=== PATIENT | female | born 1960 | race Asian ===

== ENCOUNTER 2020-03-08 19:40 | Inpatient (IN) | payer OTHER ==
[2020-03-08 19:57] VITALS: BMI 31.7
[2020-03-08] MEDS ORDERED: VALSARTAN 80 MG TABLET (UD) PO ONE (20:40)
[2020-03-08] MEDS ORDERED: VALSARTAN 80 MG TABLET (UD) ONE (20:50)
--- NOTE | 2020-03-08 21:08 | PDOC ---
History of Present Illness - General Chief Complaint: Chest Pain Stated Complaint: CHEST PAIN Time Seen by Provider: 03/08/20 20:16 - History of Present Illness Initial Comments: 03/08/20 21:05 59F PMH TIA, HTN, HLD, pre-diabetes, OA, sciatica, hysterectomy presents with one hour of chest pain. Came on while at rest, left sided, burning/throbbing, not radiating, no associated n/v or SOB. Was noted to be cold and clammy by smith walls. No DVT/PE risk factors. No GERD symptoms. ROS otherwise negative. PMH/PSH: as above Meds: aspirin, statin, ARB Allergies: none FH: Dad of [place] in his 30s PCP: Grover UGALDE GENERAL/CONSTITUTIONAL: No fever or chills. No weakness. HEAD, EYES, EARS, NOSE AND THROAT: No change in vision. No ear pain or discharge. No sore throat. CARDIOVASCULAR: chest pain. no shortness of breath RESPIRATORY: No cough, wheezing, or hemoptysis. GASTROINTESTINAL: No nausea, vomiting, diarrhea or constipation. GENITOURINARY: No dysuria, frequency, or change in urination. MUSCULOSKELETAL: No joint or muscle swelling or pain. No neck or back pain. SKIN: No rash NEUROLOGIC: No headache, vertigo, loss of consciousness, or change in strength/sensation. ENDOCRINE: No increased thirst. No abnormal weight change HEMATOLOGIC/LYMPHATIC: No anemia, easy bleeding, or history of blood clots. ALLERGIC/IMMUNOLOGIC: No hives or skin allergy. PE GENERAL: Awake, alert, and fully oriented, in no acute distress HEAD: No signs of trauma, normocephalic, atraumatic EYES: PERRLA, EOMI, sclera anicteric, conjunctiva clear ENT: Auricles normal inspection, hearing grossly normal, nares patent, oropharynx clear without exudates. Moist mucosa NECK: Normal ROM, supple, no lymphadenopathy, JVD, or masses LUNGS: No distress, speaks full sentences, clear to auscultation bilaterally HEART: Regular rate and rhythm, normal S1 and S2, no murmurs, rubs or gallops, peripheral pulses normal and equal bilaterally. ABDOMEN: Soft, nontender, normoactive bowel sounds. No guarding, no rebound. No masses EXTREMITIES : Normal inspection, Normal range of motion, no edema. No clubbing or cyanosis. NEUROLOGICAL: Cranial nerves II through XII grossly intact. Normal speech, normal gait, no focal sensorimotor deficits SKIN: Warm, Dry, normal turgor, no rashes or lesions noted Vital Signs Temp Pulse Resp BP Pulse Ox 98.9 F 77 18 145/84 100 03/08/20 19:54 03/08/20 20:54 03/08/20 20:54 03/08/20 20:54 03/08/20 20:54 MDM: 59yo female with cardiac risk factors presenting with atypical chest pain. Vitals and exam benign. Cannot PERC out because of age, but Wells-PE is zero. DDx includes ACS, msk pain, GERD. -EKG -CXR -CBC, CMP, trops, coags, BNP 03/09/20 04:50 EKG: sinus tachycardia, rate 102, normal axis, QTc 469, ST depression V6, TW flattening V2-V4 CXR: no focal consolidation (my read) Labs: grossly normal. trops neg x1 HEART Score 4 (age, EKG, risk factors). Admit to tele-obs. Signed out to admitting team. Past History - Medical History Allergies/Adverse Reactions: Allergies Allergy/AdvReac Type Severity Reaction Status Date / Time No Known Allergies Allergy Verified 03/08/20 19:57 COPD: No HTN: Yes Hypercholesterolemia: Yes - Psycho-Social/Smoking History Smoking History: Never smoked - Substance Abuse Hx (Audit-C & DAST Scrn) How often the patient has a drink containing alcohol: Never Score: In Men: 4 or > Positive; In Women: 3 or > Positive: 0 Screen Result (Pos requires Nsg. Audit-10AR): Negative *Physical Exam - Vital Signs Last Vital Signs Temp Pulse Resp BP Pulse Ox 98.9 F 77 18 145/84 100 03/08/20 19:54 03/08/20 20:54 03/08/20 20:54 03/08/20 20:54 03/08/20 20:54 Heart Score/ECG Review - History History: Slightly suspicious - Electrocardiogram EKG: Non specific repolarization disturbance - Age Age: 45-65 - Risk Factors Risk Factors Heart Score: Yes Hx Hypertension, Yes Positive family hx of cardiac disease, Yes Hx Obesity Based on the list above the patient has:: >/=3 risk factors or Hx atherosclerotic disease - Troponin Troponin: </= normal limit - Score Heart Score - Total: 4 ED Treatment Course - LABORATORY CBC & Chemistry Diagram: 03/08/20 21:00 03/08/20 21:00 - Medications Given in the ED: ED Medications Discontinued Medications Generic Name Dose Route Start Last Admin Trade Name Freq PRN Reason Stop Dose Admin Valsartan 80 mg 03/08/20 20:40 03/08/20 20:55 Diovan - PO 03/08/20 20:41 Not Given ONCE ONE Discharge - Discharge Information Problems reviewed: Yes Clinical Impression/Diagnosis: Chest pain Qualifiers: Chest pain type: unspecified Qualified Code(s): R07.9 - Chest pain, unspecified Condition: Guarded - Admission Yes - Follow up/Referral - Patient Discharge Instructions - Post Discharge Activity
[2020-03-08 21:12] LABS: BASO % 0.4 % (0-2.0); EOS % 3.5 % (0-4.5); HEMOGLOBIN 12.6 GM/dL (10.7-15.3); LYMPH % 42.3 % (8-40); MCH 29.9 pg (25.7-33.7); MCHC 34.2 g/dl (32.0-36.0); MEAN CELL VOLUME 87.4 fl (80-96); MEAN PLT VOLUME 8.6 fl (7.5-11.1); MONO % 12.1 % (3.8-10.2); NEUT % 41.7 % (42.8-82.8); PLATELET COUNT 222 K/MM3 (134-434); RBC 4.23 M/mm3 (3.60-5.2); RDW 13.4 % (11.6-15.6); WHITE BLOOD COUNT 6.8 K/mm3 (4.0-10.0)
[2020-03-08 21:18] LABS: INR 0.95 (0.83-1.09); PROTHROMBIN TIME (PATIENT) 11.2 SEC (9.7-13.0)
[2020-03-08] MEDS ORDERED: morphine CARPU-JECT 2 MG/1 ML DISP.SYRIN IVPUSH ONE (21:36)
[2020-03-08] MEDS ORDERED: MORPHINE SULFATE 2 MG/ML VIAL ONE (21:50)
[2020-03-08 21:55] LABS: ALBUMIN 3.9 g/dl (3.4-5.0); ALK PHOS 108 U/L (45-117); ANION GAP 7 MMOL/L (8-16); BILIRUBIN,TOTAL 0.4 mg/dL (0.2-1); BLOOD UREA NITROGEN 15.3 mg/dL (7-18); CALCIUM 8.9 mg/dL (8.5-10.1); CHLORIDE 107 mmol/L (98-107); CO2 25 mmol/L (21-32); CREATININE 0.6 mg/dL (0.55-1.3); GLUCOSE,RANDOM 114 mg/dL (74-106); N-TERMINAL BNP 90.9 pg/ml (5-125); POTASSIUM 3.9 mmol/L (3.5-5.1); SGOT/AST 19 U/L (15-37); SGPT/ALT 31 U/L (13-61); SODIUM 139 mmol/L (136-145); TOT PROT 7.3 g/dl (6.4-8.2)
[2020-03-08] MEDS ORDERED: METOPROLOL TARTRATE 50 MG TABLET (FP) PO ONE (22:22)
[2020-03-08] MEDS ORDERED: METOPROLOL TARTRATE 25 MG TABLET (FP) ONE (22:34)
--- NOTE | 2020-03-09 01:31 | PDOC ---
Documentation entered by Torres Silva SCRIBE, acting as scribe for Meli San MD. Meli San MD: This documentation has been prepared by the Ricardo hodges Angel, SCRIBE, under my direction and personally reviewed by me in its entirety. I confirm that the documentation accurately reflects all work, treatment, procedures, and medical decision making performed by me. Attending Attestation - Resident Resident Name: Toni Pappas - ED Attending Attestation I have performed the following: I have examined & evaluated the patient, The case was reviewed & discussed with the resident, I agree w/resident's findings & plan - HPI HPI: 03/08/20 21:47 The patient is a 59 year old female with a significant past medical history of CVA, HTN, diabetes and high cholesterol who presents to the ED with left sided chest pain since 7pm today. The patient describes the left sided chest pain as non radiating, rating it a 6/10 on arrival. The patient normally takes an aspirin everyday, today she took 3 extra tablets of baby aspirin. On arrival the patient had an elevated blood pressure as well. The patient denies fever/chills, nausea, vomiting, diarrhea, or SOB. Compliant with all medications. Family history: Mother at 39 years old of kidney failure. Father at 39 years old of a heart attack. Grandmother noted to have a history of thrombosis - Physicial Exam PE: 03/08/20 21:47 GENERAL: Awake, alert, and fully oriented, in no acute distress HEAD: No signs of trauma EYES: PERRLA, EOMI, sclera anicteric, conjunctiva clear ENT: Auricles normal inspection, hearing grossly normal, nares patent, oropharynx clear without exudates. Moist mucosa NECK: Normal ROM, supple, no lymphadenopathy, JVD, or masses LUNGS: Breath sounds equal, clear to auscultation bilaterally. No wheezes, and no crackles HEART: Regular rate and rhythm, normal S1 and S2, no murmurs, rubs or gallops ABDOMEN: Soft, nontender, normoactive bowel sounds. No guarding, no rebound. No masses EXTREMITIES: Normal range of motion, no edema. No clubbing or cyanosis. No cords, erythema, or tenderness NEUROLOGICAL: Cranial nerves II through XII grossly intact. Normal speech, normal gait SKIN: Warm, Dry, normal turgor, no rashes or lesions noted. - Medical Decision Making 03/08/20 22:17 first set of labs normal CXR also normal EKG NSR Pt will be admitted for ACS Discharge - Discharge Information Problems reviewed: Yes Clinical Impression/Diagnosis: ACS (acute coronary syndrome) Condition: Guarded - Follow up/Referral - Patient Discharge Instructions - Post Discharge Activity
--- NOTE | 2020-03-09 02:44 | PN ---
Teaching Attending Note Name of Resident: Erich Strickland ATTENDING PHYSICIAN STATEMENT I saw and evaluated the patient. I reviewed the resident's note and discussed the case with the resident. I agree with the resident's findings and plan as documented. SUBJECTIVE: 59yoF with history of TIA, HTN, HLD, pre-diabetes, and sciatica who presents wit h 1 hour of burning left sided chest pain. Patient denies prior history of chest pain, no associated shortness of breath, radiation, or diaphoresis. Pain was located over the medial left breast. She took 3 baby aspirin prior to arriving in the ED. Notes she had a stress test in [facility] several years ago which she believes was normal. The pain was around 7/10 at its worst, improved s/p morphine in the ED. Also reports her father from [place] at age 39. Patient was hypertensive in the ED. Labs were unremarkable including negative troponin. EKG showed flattened T waves in leads V2-V4, no prior to compare. Patient received valsartan with improvement in BP and morphine with improvement in chest pain and is admitted for further work up. OBJECTIVE: Vital Signs - 24 hr 03/08/20 03/08/20 03/08/20 19:54 20:54 22:42 Temperature 98.9 F Pulse Rate 81 Pulse Rate [ 77 Radial] Respiratory 20 18 Rate Blood Pressure 178/93 H Blood Pressure 145/84 141/77 [Left Arm] O2 Sat by Pulse 97 100 Oximetry (%) 03/08/20 03/09/20 23:27 03:00 Temperature Pulse Rate Pulse Rate [ 64 Radial] Respiratory 16 Rate Blood Pressure Blood Pressure 138/81 [Left Arm] O2 Sat by Pulse 98 99 Oximetry (%) EXAM Gen: awake, alert, comfortable appearing CV: RRR, no MRG. No chest pain at time of evaluation, nonreproducible on exam Resp: CTAB, unlabored Abd: Soft, NT, ND Ext: No peripheral edema Neuro: CN II-XII grossly intact, moving all extremities Psych: AOx3, appropriate mood/affect Laboratory Results - last 24 hr 03/08/20 03/08/20 03/08/20 21:00 21:00 21:00 WBC 6.8 RBC 4.23 Hgb 12.6 Hct 37.0 MCV 87.4 MCH 29.9 MCHC 34.2 RDW 13.4 Plt Count 222 MPV 8.6 Absolute Neuts (auto) 2.8 Neutrophils % 41.7 L Lymphocytes % 42.3 H Monocytes % 12.1 H Eosinophils % 3.5 Basophils % 0.4 Nucleated RBC % 0 PT with INR 11.20 INR 0.95 PTT (Actin FS) 33.0 Sodium 139 Potassium 3.9 Chloride 107 Carbon Dioxide 25 Anion Gap 7 L BUN 15.3 Creatinine 0.6 Est GFR (CKD-EPI)AfAm 115.63 Est GFR (CKD-EPI)NonAf 99.77 POC Glucometer Random Glucose 114 H Calcium 8.9 Total Bilirubin 0.4 AST 19 ALT 31 Alkaline Phosphatase 108 Creatine Kinase 124 Troponin I < 0.02 B-Natriuretic Peptide 90.9 Total Protein 7.3 Albumin 3.9 03/09/20 03/09/20 04:15 04:18 WBC RBC Hgb Hct MCV MCH MCHC RDW Plt Count MPV Absolute Neuts (auto) Neutrophils % Lymphocytes % Monocytes % Eosinophils % Basophils % Nucleated RBC % PT with INR INR PTT (Actin FS) Sodium Potassium Chloride Carbon Dioxide Anion Gap BUN Creatinine Est GFR (CKD-EPI)AfAm Est GFR (CKD-EPI)NonAf POC Glucometer 51 Random Glucose Calcium Total Bilirubin AST ALT Alkaline Phosphatase Creatine Kinase Troponin I < 0.02 B-Natriuretic Peptide Total Protein Albumin CXR and EKG reviewed in chart ASSESSMENT AND PLAN: 59yoF with history of TIA, HTN, HLD, pre-diabetes, and sciatica who presents with atypical chest pain. Atypical chest pain Does have numerous risk factors for CAD including HTN, HLD, family history of premature cardiac disease Currently asymptomatic EKG with flattened T waves in anteroseptal leads, nonspecific Initial troponin negative - cycle troponin - risk stratification with A1c, lipids - Repeat EKG in AM - Outpatient f/u for stress test HTN, HLD: continue home meds DVT ppx: Lovenox subq
--- NOTE | 2020-03-09 04:31 | HP ---
CHIEF COMPLAINT: Chest pain PCP: Dr. Grover Agustin HISTORY OF PRESENT ILLNESS: 59 year old female patient with past medical history that includes TIA, HTN, HLD, Carpal Tunnel Syndrome, pre-DM, OA, Sciatica, and Hysterectomy, who presented to the emergency room with 1 hour of left sided burning chest pain michelle t was initially a 7/10, non-radiating, and which came on at rest while she was talking to her daughter. The patient took 3 baby aspirin after the pain started. She has never had this kind of pain in the past. 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 On physical exam, palpation of the patient's chest in the region she reports pain causes reproduction of the pain, with the patient jumping up when the area is palpated. The patient had received Morphine which reduced the pain level from a 7/10 down to a 2/10. ER course was notable for: (1) ECG (NSR, 102bpm, MO 164ms, [id number], nonspecific st and t wave abnormality) (2) Troponin negative (3) Recent Travel: PAST MEDICAL HISTORY: TIA, HTN, HLD, Carpal Tunnel Syndrome, pre-DM, OA, Sciatica PAST SURGICAL HISTORY: Hysterectomy Social History: Smoking: Denies Alcohol: Denies Drugs: Denies Allergies No Known Allergies Allergy (Verified 03/08/20 19:57) HOME MEDICATIONS: REVIEW OF SYSTEMS HEENT: Absent: no acid taste in mouth, no headache RESPIRATORY: Absent: no shortness of breath GASTROINTESTINAL: Absent: no nausea, no vomiting, no heartburn, no diarrhea, no constipation MUSCULOSKELETAL: bilateral ankle swelling Absent: PHYSICAL EXAMINATION Vital Signs - 24 hr 03/08/20 03/08/20 03/08/20 19:54 20:54 22:42 Temperature 98.9 F Pulse Rate 81 Pulse Rate [ 77 Radial] Respiratory 20 18 Rate Blood Pressure 178/93 H Blood Pressure 145/84 141/77 [Left Arm] O2 Sat by Pulse 97 100 Oximetry (%) 03/08/20 03/09/20 23:27 03:00 Temperature Pulse Rate Pulse Rate [ 64 Radial] Respiratory 16 Rate Blood Pressure Blood Pressure 138/81 [Left Arm] O2 Sat by Pulse 98 99 Oximetry (%) GENERAL: Awake, alert, and fully oriented, in no acute distress. HEAD: Normal with no signs of trauma. EYES: Pupils equal, round and reactive to light, extraocular movements intact. No lid lag. EARS, NOSE, THROAT: Ears normal, nares patent, oropharynx clear without exudates. Moist mucous membranes. NECK: Normal range of motion, supple without lymphadenopathy, JVD, or masses. LUNGS: Breath sounds equal, clear to auscultation bilaterally. No wheezes, and no crackles. No accessory muscle use. HEART: Regular rate and rhythm, normal S1 and S2 without murmur, rub or gallop. ABDOMEN: Soft, nontender, not distended, normoactive bowel sounds, no guarding, no rebound, no masses. MUSCULOSKELETAL: Normal range of motion at all joints. No bony deformities or tenderness. Reproduction of pain with patient flinching when area of pain in chest is palpated. UPPER EXTREMITIES: 2+ pulses, warm, well-perfused. No cyanosis. No clubbing. No peripheral edema. LOWER EXTREMITIES: 2+ pulses, warm, well-perfused. No calf tenderness. No peripheral edema. NEUROLOGICAL: Normal speech. PSYCHIATRIC: Cooperative. Good eye contact. Appropriate mood and affect. SKIN: Warm, dry, normal turgor, no rashes or lesions noted, normal capillary refill. Laboratory Results - last 24 hr 03/08/20 03/08/20 03/08/20 21:00 21:00 21:00 WBC 6.8 RBC 4.23 Hgb 12.6 Hct 37.0 MCV 87.4 MCH 29.9 MCHC 34.2 RDW 13.4 Plt Count 222 MPV 8.6 Absolute Neuts (auto) 2.8 Neutrophils % 41.7 L Lymphocytes % 42.3 H Monocytes % 12.1 H Eosinophils % 3.5 Basophils % 0.4 Nucleated RBC % 0 PT with INR 11.20 INR 0.95 PTT (Actin FS) 33.0 Sodium 139 Potassium 3.9 Chloride 107 Carbon Dioxide 25 Anion Gap 7 L BUN 15.3 Creatinine 0.6 Est GFR (CKD-EPI)AfAm 115.63 Est GFR (CKD-EPI)NonAf 99.77 Random Glucose 114 H Calcium 8.9 Total Bilirubin 0.4 AST 19 ALT 31 Alkaline Phosphatase 108 Creatine Kinase 124 Troponin I < 0.02 B-Natriuretic Peptide 90.9 Total Protein 7.3 Albumin 3.9 ASSESSMENT/PLAN: 59 year old female patient with past medical history that includes TIA, HTN, HLD, Carpal Tunnel Syndrome, pre-DM, OA, Sciatica, and Hysterectomy, who presented to the emergency room with 1 hour of left sided non-radiating chest pain. 1. Chest pain likely musculoskeletal in nature - Troponin negative - ECG showed no ST elevations/depressions - Patient denies experiencing this type of pain in the past - Ordered repeat troponin and repeat ECG - Lipid Panel ordered 2. HTN - May resume HTN medications when clinically appropriate 3. HLD - May resume HLD medications when clinically appropriate 4. Pre-DM - BGMs - Novolog - A1C ordered #FEN - Monitor Electrolytes. Diabetic/Sodium Controlled Diet. DVT PPx - Heparin SQ Family Medical History Family History: As Documented Family Hx Coronary Artery Disease: Father ( of [place] at 39) Family Hx Renal Disease: Mother (Renal Failure) Other Family History: Paternal grandmother had blood clots Visit type - Emergency Visit Emergency Visit: Yes ED Registration Date: 03/09/20 Care time: The patient presented to the Emergency Department on the above date and was hospitalized for further evaluation of their emergent condition. - New Patient This patient is new to me today: Yes Date on this admission: 03/09/20 - Critical Care Critical Care patient: No ATTENDING PHYSICIAN STATEMENT I saw and evaluated the patient. I reviewed the resident's note and discussed the case with the resident. I agree with the resident's findings and plan as documented. SUBJECTIVE: OBJECTIVE: ASSESSMENT AND PLAN:
[2020-03-09] MEDS: HEPARIN NA (PORCINE) 5,000 UNITS/ML 1ML VIAL SQ SCH ×3 (06:18→23:12)
[2020-03-09] MEDS: INSULIN SLIDING SCALE (NOVOLOG) 1 VIAL SQ SCH ×4 (06:18→23:12)
[2020-03-09 07:57] LABS: CHOLESTEROL 162 mg/dL (50-200); LDL CHOLESTEROL (ONLY SJRH) 91 mg/dL (5-100); TRIGLYCERIDES 95 mg/dL (0-150)
[2020-03-09 07:58] LABS: HDL CHOLESTEROL 52 mg/dL (40-60)
--- NOTE | 2020-03-09 10:13 | CON.CARD ---
Consult Consult Specialty:: Cardiology for dr. Holley - History of Present Illness History of Present Illness: he patient is a 59 year old female with a significant past medical history of CVA/TIA, HTN, diabetes and high cholesterol who presents to the ED with left sided chest pain since 7pm today. The patient describes the left sided chest pain as non radiating, rating it a 6/10 on arrival. The patient normally takes an aspirin everyday, today she took 3 extra tablets of baby aspirin. On arrival the patient had an elevated blood pressure as well. The patient denies fever/chills, nausea, vomiting, diarrhea, or SOB. Compliant with all medications. Family history: Mother at 39 years old of kidney failure. Father at 39 years old of a heart attack. Grandmother noted to have a history of thrombosis - History Source History Provided By: Patient, Medical Record - Past Medical History Cardio/Vascular: Yes: HTN, Hyperlipdemia - Smoking History Smoking history: Never smoked Home Medications - Allergies Allergies/Adverse Reactions: Allergies Allergy/AdvReac Type Severity Reaction Status Date / Time No Known Allergies Allergy Verified 03/08/20 19:57 Family Medical History Family Hx Coronary Artery Disease: Father ( of [place] at 39) Family Hx Renal Disease: Mother (Renal Failure) Other Family History: Paternal grandmother had blood clots Review of Systems - Review of Systems Constitutional: reports: No Symptoms Eyes: reports: No Symptoms HENT: reports: No Symptoms Neck: reports: No Symptoms Cardiovascular: reports: Chest Pain Respiratory: reports: No Symptoms Gastrointestinal: reports: No Symptoms Genitourinary: reports: No Symptoms Breasts: reports: No Symptoms Reported Musculoskeletal: reports: No Symptoms Integumentary: reports: No Symptoms Neurological: reports: No Symptoms Endocrine: reports: No Symptoms Hematology/Lymphatic: reports: No Symptoms Psychiatric: reports: No Symptoms Vital Signs: Vital Signs Temperature 98.9 F 03/08/20 19:54 Pulse Rate 64 03/09/20 03:00 Respiratory Rate 16 03/09/20 03:00 Blood Pressure 138/81 03/09/20 03:00 O2 Sat by Pulse Oximetry (%) 99 03/09/20 03:00 Constitutional: Yes: Well Nourished, No Distress, Calm Eyes: Yes: WNL, Conjunctiva Clear, EOM Intact HENT: Yes: WNL, Atraumatic, Normocephalic Neck: Yes: WNL, Supple, Trachea Midline Respiratory: Yes: WNL, Regular, CTA Bilaterally Gastrointestinal: Yes: WNL, Normal Bowel Sounds Renal/: Yes: WNL Cardiovascular: Yes: WNL, Regular Rate and Rhythm Musculoskeletal: Yes: WNL Extremities: Yes: WNL Integumentary: Yes: WNL Neurological: Yes: Alert, Oriented - Other Data Labs, Other Data: CBC, BMP 03/08/20 21:00 03/08/20 21:00 INR, PTT INR 0.95 (0.83-1.09) 03/08/20 21:00 Troponin, BNP 03/08/20 03/09/20 21:00 04:15 Troponin I < 0.02 < 0.02 B-Natriuretic Peptide 90.9 Troponin, BNP 03/08/20 03/09/20 21:00 04:15 Troponin I < 0.02 < 0.02 B-Natriuretic Peptide 90.9 Imaging - Results Chest X-ray: Image Reviewed (no i/e) EKG: Image Reviewed (s tachy rep abn) Problem List - Problems (1) Chest pain Code(s): R07.9 - CHEST PAIN, UNSPECIFIED Qualifiers: Chest pain type: unspecified Qualified Code(s): R07.9 - Chest pain, unspe cified Assessment/Plan The patient is a 59 year old female with a significant past medical history of CVA, HTN, diabetes and high cholesterol who presents to the ED with left sided chest pain.Found to be tachycardic. Plan; r/o MO serial ekg and CE d-dimers ASA DVT PLX CTA to r/o PE Coverage dr. Holley
--- NOTE | 2020-03-09 12:44 | EKG ---
Test Reason : Blood Pressure : / mmHG Vent. Rate : 102 BPM Atrial Rate : 102 BPM P-R Int : 164 ms QRS Dur : 074 ms QT Int : 360 ms P-R-T Axes : 063 -10 044 degrees QTc Int : 469 ms SINUS TACHYCARDIA POSSIBLE LEFT ATRIAL ENLARGEMENT NONSPECIFIC ST AND T WAVE ABNORMALITY ABNORMAL ECG NO PREVIOUS ECGS AVAILABLE Confirmed by Kiel Gamble ([id number]) on 03/09/2020 12:44:19 PM Referred By: Confirmed By:Kiel Gamble
[2020-03-09] MEDS ORDERED: ASPIRIN COATED 81 MG TABLET.EC PO SCH (14:30)
--- NOTE | 2020-03-09 14:31 | HOSP ---
Physical Examination Vital Signs: Vital Signs Temperature 98.9 F 03/08/20 19:54 Pulse Rate 64 03/09/20 03:00 Respiratory Rate 16 03/09/20 03:00 Blood Pressure 138/81 03/09/20 03:00 O2 Sat by Pulse Oximetry (%) 99 03/09/20 03:00 Labs: CBC, BMP 03/08/20 21:00 03/08/20 21:00 Hospitalist Encounter Assessment: 59 year old female patient with past medical history that includes TIA, HTN, HLD, Carpal Tunnel Syndrome, pre-DM, OA, Sciatica, and [id number] year old female patient with past medical history that includes TIA, HTN, HLD, Carpal Tunnel Syndrome, pre-DM, OA, Sciatica, and Hysterectomy, who presented to the emergency room with 1 hour of left sided non-radiating chest pain. #atypical Chest pain r/o ACS - Troponin negative x 3 -echo ordered -cardio following-plan for stress test in AM - ECG showed no ST elevations/depressions - Lipid Panel wnl -CTA chest neg for PE # HTN #HLD -c/w [employer] WORK[employer] meds # Pre-DM - BGMs - Novolog - A1C 5.6 #FEN - Monitor Electrolytes. Diabetic/Sodium Controlled Diet. DVT PPx - Heparin SQ
[2020-03-09] MEDS ORDERED: HEPARIN NA (PORCINE) 5,000 UNITS/ML 1ML VIAL ONE ×2 (14:56→23:03)
[2020-03-09] MEDS ORDERED: LOSARTAN POTASSIUM 50 MG TABLET (FP) PO SCH (15:30)
[2020-03-09] MEDS ORDERED: LOSARTAN POTASSIUM 50 MG TABLET (FP) ONE (16:39)
--- NOTE | 2020-03-09 21:21 | EKG ---
Test Reason : Blood Pressure : / mmHG Vent. Rate : 070 BPM Atrial Rate : 070 BPM P-R Int : 164 ms QRS Dur : 076 ms QT Int : 418 ms P-R-T Axes : 057 -09 082 degrees QTc Int : 451 ms NORMAL SINUS RHYTHM MINIMAL VOLTAGE CRITERIA FOR LVH, MAY BE NORMAL VARIANT NONSPECIFIC T WAVE ABNORMALITY ABNORMAL ECG WHEN COMPARED WITH ECG OF 08-MAR-2020 19:51, T WAVE VARIATION Confirmed by AMANDA CARDOZO MD ([id number]) on 03/09/2020 9:21:12 PM Referred By: Batool BARBOSA Confirmed By:AMANDA CARDOZO MD
[2020-03-09] MEDS ORDERED: ATORVASTATIN CA 80 MG TABLET (FP) PO SCH (22:00)
[2020-03-09] MEDS ORDERED: ATORVASTATIN CA 80 MG TABLET (FP) ONE (23:03)
--- NOTE | 2020-03-10 01:04 | HOSP ---
Subjective - Review of Symptoms Events since last encounter: Night-time resident alteration hand paged at 21:41 to see patient due to burning chest pain and tachycardia. Patient seen and examined at bedside. Patient reports t hat she had burning left-sided chest pain and then her heart monitor started beeping. The patient's daughter noticed that the monitor had "V-tach" on it. Patient denied feeling any palpitations. ECG done at bedside showed normal sinus rhythm. Monitor examined after seeing patient, which showed a couple events of a very short segment of V-tach. Physical Exam: HEENT: Oral mucosa moist Heart: RRR with no murmurs auscultated. Pain not reproducible on palpation of chest wall. Lung: CTA b/l with no W/R/R Cardiovascular: Yes: Chest Pain. No: Palpitations Physical Examination Vital Signs: Vital Signs Temperature 97.1 F L 03/09/20 21:55 Pulse Rate 87 03/09/20 21:55 Respiratory Rate 16 03/09/20 21:55 Blood Pressure 153/98 03/09/20 21:55 O2 Sat by Pulse Oximetry (%) 97 03/09/20 21:55 HENT: Yes: WNL, Atraumatic, Normocephalic Cardiovascular: Yes: WNL, Regular Rate and Rhythm, Other (Pain not reproducable on palpation of chest wall) Respiratory: Yes: WNL, Regular, CTA Bilaterally Labs: CBC, BMP 03/08/20 21:00 03/08/20 21:00 Visit type - Emergency Visit Emergency Visit: Yes ED Registration Date: 03/09/20 Care time: The patient presented to the Emergency Department on the above date and was hospitalized for further evaluation of their emergent condition. - New Patient This patient is new to me today: No - Critical Care Critical Care patient: No
[2020-03-10] MEDS ORDERED: HEPARIN NA (PORCINE) 5,000 UNITS/ML 1ML VIAL ONE ×2 (06:08→17:11)
[2020-03-10] MEDS: HEPARIN NA (PORCINE) 5,000 UNITS/ML 1ML VIAL SQ SCH ×2 (06:12→17:34)
[2020-03-10 06:57] VITALS: TEMP 98.1
[2020-03-10] MEDS ORDERED: ASPIRIN 81 MG CHEWABLE TABLETS ONE (09:19)
[2020-03-10] MEDS ORDERED: TELMISARTAN 80 MG PO SCH (10:00)
[2020-03-10] MEDS ORDERED: ASPIRIN 81 MG CHEWABLE TABLETS PO SCH (10:00)
[2020-03-10] MEDS: INSULIN SLIDING SCALE (NOVOLOG) 1 VIAL SQ SCH ×3 (10:17→17:35)
--- NOTE | 2020-03-10 11:12 | ECHO ---
Version: 1 Name: SARAH VILLARREAL Exam: Adult Echocardiogram Study Date: 03/10/2020, 9:07 AM Age: 59 Years MMode/2D Measurements & Calculations IVSd: 0.92 cm LVIDs: 2.8 cm LVIDd: 4.0 cm LVPWd: 0.97 cm LAV (MOD-bp): 30.7 ml LVOT diam: 2.02 cm Ao root diam: 2.8 cm LA dimension: 2.36 cm Doppler Measurements & Calculations MV E max jonathan: 57.5 cm/sec Med E/e': 12.9 MV A max jonathan: 79.0 cm/sec Med Peak E' Jonathan: 4.5 cm/sec MV E/A: 0.73 Lat E/e': 7.6 Lat Peak E' Jonathan: 7.6 cm/sec Ao max P.8 mmHg Ao V2 max: 120.7 cm/sec TR max jonathan: 221.7 cm/sec TR max P.7 mmHg Procedure The study was technically difficult with many images being suboptimal in quality. Left Ventricle The left ventricular size, thickness and function are normal. Ejection Fraction = 60-65%. The transm itral spectral Doppler flow pattern is suggestive of impaired LV relaxation. Right Ventricle The right ventricle is normal in size and function. Atria Normal left and right atrial size and function. Mitral Valve There is mild mitral annular calcification. Tricuspid Valve The tricuspid valve is not well visualized. There was insufficient TR detected to calculate RV systo lic pressure. Aortic Valve There is mild aortic sclerosis.;. No hemodynamically significant valvular aortic stenosis. Pulmonic Valve The pulmonic valve is not well visualized. Great Vessels The aortic root is normal size. Pericardium/Pleura There is no pericardial effusion. Summary Statements The study was technically difficult with many images being suboptimal in quality. The left ventricular size, thickness and function are normal. Ejection Fraction = 60-65%. The right ventricle is normal in size and function. Normal left and right atrial size and function. There is mild mitral annular calcification. There is mild aortic sclerosis.; No hemodynamically significant valvular aortic stenosis. MD Viola Aragon03/10/2020, 11:11 AM Ordering Physician: Dae Viera Performed By: Marybeth Rodriguez
--- NOTE | 2020-03-10 12:18 | PN ---
Progress Note, Physician Chief Complaint: Events noted Not in distress History of Present Illness: Patient was seen and examined. Awake and alert. Chart was reviewed Episode of chest discomfort. No SOB or palpitations - Current Medication List Current Medications: Active Medications Aspirin (Asa -) 81 mg PO DAILY [facility] Last Admin: 03/10/20 11:00 Dose: 81 mg Documented by: Atorvastatin Calcium (Lipitor -) 80 mg PO HS [facility] Last Admin: 03/09/20 23:12 Dose: 80 mg Documented by: Heparin Sodium (Porcine) (Heparin -) 5,000 unit SQ TID [facility] Last Admin: 03/10/20 06:12 Dose: 5,000 unit Documented by: Insulin Aspart (Novolog Vial Sliding Scale -) 1 vial SQ ACHS [facility]; Protocol Last Admin: 03/10/20 11:21 Dose: Not Given Documented by: Non-Formulary Med [ Telmisartan ( Micardis) 80mg ] 1 each PO DAILY [facility] Last Admin: 03/10/20 11:00 Dose: 1 each Documented by: - Objective Vital Signs: Vital Signs Temperature 98.1 F 03/10/20 06:55 Pulse Rate 73 03/10/20 11:00 Respiratory Rate 18 03/10/20 11:00 Blood Pressure 132/90 03/10/20 11:00 O2 Sat by Pulse Oximetry (%) 99 03/10/20 11:00 Neck: Yes: Supple Cardiovascular: Yes: Regular Rate and Rhythm, S1, S2 Respiratory: Yes: CTA Bilaterally Gastrointestinal: Yes: Normal Bowel Sounds, Soft. No: Tenderness Edema: No Additional Findings/Remarks: - Review of Systems Constitutional: denies: Chills, Fever Cardiovascular: (+) Chest Pain, denies: Palpitations, Shortness of Breath Respiratory: denies: Cough, Hemoptysis, Orthopnea, PND, SOB, SOB on Exertion Gastrointestinal: denies: Abdominal Pain, Constipation, Diarrhea, Melena, Nausea, Rectal Bleeding, Vomiting Genitourinary: denies: Dysuria, Hematuria Musculoskeletal: denies: Back Pain, Joint Pain Neurological: denies: Dizziness, Headache, Seizure, Syncope Problem List - Problems (1) HTN (hypertension) Code(s): I10 - ESSENTIAL (PRIMARY) HYPERTENSION (2) Hypercholesterolemia Code(s): E78.00 - PURE HYPERCHOLESTEROLEMIA, UNSPECIFIED (3) Diabetes mellitus Code(s): E11.9 - TYPE 2 DIABETES MELLITUS WITHOUT COMPLICATIONS (4) Cerebrovascular disease Code(s): I67.9 - CEREBROVASCULAR DISEASE, UNSPECIFIED (5) Chest pain Code(s): R07.9 - CHEST PAIN, UNSPECIFIED Qualifiers: Chest pain type: unspecified Qualified Code(s): R07.9 - Chest pain, unspecified Assessment/Plan 1. Chest pain, rule out CAD 2. HTN 3. Cerebrovascular disease 4. DM 5. Hypercholesterolemia PLAN: 1. Micardis 80 mg QD 2. Lipitor 80 mg QHS 3. Echocardiography to assess LV/RV and valvular function 4. Nuclear MPI today 5. Continue ASA 81 mg QD Further plans are to follow Follow up in our office, [facility] upon discharge. Juan Holley MD
--- NOTE | 2020-03-10 17:44 | DS ---
Physical Exam: SUBJECTIVE: Patient seen and examined OBJECTIVE: Vital Signs Period Temp Pulse Resp BP Sys/Wilkerson Pulse Ox Last 24 Hr 97.1 F-98.1 F 63-93 16-19 114-153/68-98 95-100 PHYSICAL EXAM GENERAL: The patient is awake, alert, and fully oriented, in no acute distress. HEAD: Normal with no signs of trauma. EYES: PERRL, extraocular movements intact, sclera anicteric, conjunctiva clear. ENT: Ears normal, nares patent, oropharynx clear without exudates, moist mucous membranes. NECK: Trachea midline, full range of motion, supple. LUNGS: Breath sounds equal, clear to auscultation bilaterally, no wheezes, no crackles, no accessory muscle use. HEART: Regular rate and rhythm, S1, S2 without murmur, rub or gallop. ABDOMEN: Soft, nontender, nondistended, normoactive bowel sounds, no guarding, no rebound, no hepatosplenomegaly, no masses. EXTREMITIES: 2+ pulses, warm, well-perfused, no edema. NEUROLOGICAL: Cranial nerves II through XII grossly intact. Normal speech, gait not observed. PSYCH: Normal mood, normal affect. SKIN: Warm, dry, normal turgor, no rashes or lesions noted. LABS Laboratory Results - last 24 hr 03/09/20 03/09/20 03/10/20 05:10 23:10 09:59 POC Glucometer 157 100 COVID-19 ([facility]) Not detected 03/10/20 17:26 POC Glucometer 109 COVID-19 ([facility]) HOSPITAL COURSE: Date of Admission:03/09/20 Date of Discharge: 03/10/20 Pre hospital course 59 year old female patient with past medical history that includes TIA, HTN, HLD, Carpal Tunnel Syndrome, pre-DM, OA, Sciatica, and Hysterectomy, who presented to the emergency room with 1 hour of left sided burning chest pain that was initially a 7/10, non-radiating, and which came on at rest while she was talking to her daughter. The patient took 3 baby aspirin after the pain started. She has never had this kind of pain in the past. She does not have a hand box folder, but had a stress test done 6 or 7 years ago while in a hospital in [facility], which she believes came back within normal limits. On physical exam, palpation of the patient's chest in the region she reports pain causes reproduction of the pain, with the patient jumping up when the area is palpated. The patient had received Morphine which reduced the pain level from a 7/10 down to a 2/10. ER course was notable for: (1) ECG (NSR, 102bpm, AK 164ms, [id number], nonspecific st and t wave abnormality) (2) Troponin negative Subsequent hospital course 59 year old female patient with past medical history that includes TIA, HTN, HLD, Carpal Tunnel Syndrome, pre-DM, OA, Sciatica, and Hysterectomy, who presented to the emergency room with 1 hour of left sided non-radiating chest pain. Chest pain - Troponin negative x 3; ACS ruled out - ECG no acute ischemia - Echo: LV normal, EF 60-65%; RV normal - Stress negative - continue ASA Hypertension --continue telmisartan Hyperlipidemia --continue Lipitor Minutes to complete discharge: 35 Discharge Summary Problems reviewed: Yes Reason For Visit: CHEST PAIN Current Active Problems Cerebrovascular disease (Acute) Chest pain (Acute) Diabetes mellitus (Acute) HTN (hypertension) (Acute) Hypercholesterolemia (Acute) Condition: Improved - Instructions Diet, Activity, Other Instructions: It is recommended you follow up with Dr. Juan Holley, hand box folder, within 2 weeks of your discharge. Referrals: Grover Agustin [Primary Care Provider] - Juan Holley MD [Staff Physician] - 2 Weeks Disposition: HOME - Home Medications Comprehensive Discharge Medication List: Ambulatory Orders Aspirin [Ecotrin] 81 mg PO DAILY 03/09/20 Atorvastatin Ca [Lipitor] 80 mg PO HS 03/09/20 Telmisartan [Micardis] 80 mg PO DAILY 03/09/20 This patient is new to me today: Yes Date on this admission: 03/15/20 Emergency Visit: Yes ED Registration Date: 03/09/20 Care time: The patient presented to the Emergency Department on the above date and was hospitalized for further evaluation of their emergent condition. Critical Care patient: No - Discharge Referral Referred to [facility] No
[2020-03-10 19:35] VITALS: BP 149/85; PULSE 77
--- NOTE | 2020-03-17 14:07 | EKG ---
Test Reason : Blood Pressure : / mmHG Vent. Rate : 087 BPM Atrial Rate : 087 BPM P-R Int : 156 ms QRS Dur : 078 ms QT Int : 364 ms P-R-T Axes : 048 -13 049 degrees QTc Int : 438 ms NORMAL SINUS RHYTHM MODERATE VOLTAGE CRITERIA FOR LVH, MAY BE NORMAL VARIANT NONSPECIFIC ST AND T WAVE ABNORMALITY ABNORMAL ECG WHEN COMPARED WITH ECG OF 09-MAR-2020 10:14, NONSPECIFIC T WAVE ABNORMALITY, IMPROVED IN ANTEROLATERAL LEADS Confirmed by Deonet Oliver MD ([id number]) on 03/17/2020 2:07:20 PM Referred By: Confirmed By:Deonte Oliver MD
== END 2020-03-10 18:15 | disposition home or self-care (01) | DRG 198 ==
LOC: JER 19:40 → JERBED 21:52 → OBSVTOIN 03-09 00:41
PROVIDERS: ADMIT Hospitalist; ATTEND Nurse Practitioner Acute Care
DX: R07.89 Other chest pain (principal); E78.5 Hyperlipidemia, unspecified; R00.0 Tachycardia, unspecified; I10 Essential (primary) hypertension; I25.10 Atherosclerotic heart disease of native coronary artery without angina pectoris
CPT/HCPCS: 36415; 71046-TC-FY; 71275-TC; 78452-TC; 80053; 80061; 82550; 82962; 83036; 83721; 83880; 84443; 84484; 85025; 85379; 85610; 85730; 93005; 93010; 93017; 93306-TC; 99285-25; A9502; G0378; J1644; Q9967; U0003

== ENCOUNTER 2021-03-10 12:27 | Emergency (ER) | payer OTHER ==
[2021-03-10 12:53] VITALS: BP 132/87; PULSE 108; TEMP 98.3; BMI 32.1
[2021-03-10] MEDS ORDERED: KETOROLAC TROMETHAMINE 30 MG/1 ML VIAL IM ONE (13:15)
[2021-03-10] MEDS ORDERED: KETOROLAC TROMETHAMINE 30 MG/1 ML VIAL ONE (13:17)
== END 2021-03-10 14:44 | disposition home or self-care (01) ==
LOC: JER 12:27 → JERFT 12:27
PROC: 3E0233Z Introduction of Anti-inflammatory into Muscle, Percutaneous Approach (ICD-10-PCS; principal; 2021-03-10)
DX: S62.102A Fracture of unspecified carpal bone, left wrist, initial encounter for closed fracture (principal); W17.2XXA Fall into hole, initial encounter; Y93.01 Activity, walking, marching and hiking
CPT/HCPCS: 73090-TC-LT-FY; 73110-TC-LT-FY; 73130-TC-LT-FY; 73610-TC-RT-FY; 99285-25

== ENCOUNTER 2021-03-31 12:12 | Day surgery (SDC) | payer OTHER ==
[2021-03-15 16:02] VITALS: BMI 32.1
[2021-03-31] MEDS ORDERED: DEXAMETHASONE SOD PHOSPHATE 10 MG/1 ML VIAL ONE (13:32)
[2021-03-31] MEDS ORDERED: MIDAZOLAM HCL 2 MG/2 ML SINGLE DOSE VIAL ONE (13:32)
[2021-03-31] MEDS ORDERED: ROPIVACAINE HCL 0.5% 30ML VIAL ONE (13:32)
[2021-03-31] MEDS ORDERED: PROPOFOL 20 ML ONE ×2 (14:08)
[2021-03-31] MEDS ORDERED: ceFAZolin SODIUM 1 GM VIAL ONE (14:10)
[2021-03-31] MEDS ORDERED: DEXAMETHASONE SOD PHOSPHATE 4 MG/1 ML VIAL ONE (14:10)
[2021-03-31] MEDS ORDERED: ONDANSETRON 4 MG/2 ML VIAL ONE (14:10)
[2021-03-31] MEDS ORDERED: KETOROLAC TROMETHAMINE 30 MG/1 ML VIAL ONE (14:10)
[2021-03-31] MEDS ORDERED: GUM MASTIC/STORAX/MSAL/ALCOHOL 1 DRP DROPSBTL MC ONE (15:34)
[2021-03-31] MEDS ORDERED: ONDANSETRON 4 MG/2 ML VIAL IVPUSH PRN (16:09)
[2021-03-31] MEDS ORDERED: oxyCODONE HCL 5 MG TABLET PO PRN ×2 (16:09)
[2021-03-31] MEDS ORDERED: PROMETHAZINE HCL 25 MG/1 ML VIAL IVPUSH PRN (16:09)
[2021-03-31 16:40] VITALS: TEMP 98.1
[2021-03-31 17:28] VITALS: BP 119/69; PULSE 75
== END 2021-03-31 17:10 | disposition home or self-care (01) ==
LOC: FASU 12:12
PROVIDERS: ATTEND Orthopaedic Surgery Hand Surgery
PROC: 0PSJ04Z Reposition Left Radius with Internal Fixation Device, Open Approach (ICD-10-PCS; principal; 2021-03-31 14:20)
PROC: 0LN60ZZ Release Left Lower Arm and Wrist Tendon, Open Approach (ICD-10-PCS; 2021-03-31 14:20)
DX: S52.572A Other intraarticular fracture of lower end of left radius, initial encounter for closed fracture (principal); X58.XXXA Exposure to other specified factors, initial encounter; Y93.9 Activity, unspecified; Y92.9 Unspecified place or not applicable
CPT/HCPCS: 25290; 25609; C1713; 73110-TC-LT-FY; 94760; C9803; J1100; U0003; U0005